=== PATIENT | male | born 1975 | race Two or more races ===

== ENCOUNTER 2025-02-07 08:26 | Emergency (ER) | payer OTHER ==
[~2025-02-07] VITALS: Ht 154.9 cm; Wt 111.1 kg
[2025-02-07 08:29] VITALS: BP 160/64; O2SAT 100
[2025-02-07] MEDS ORDERED: LOSARTAN-HCTZ1 EACH (08:29)
[2025-02-07 09:57] LABS: PH,URINE 7.5 (5.0-8.0); URINE APPEARANCE Clear; URINE BILIRRUBIN Negative (NEGATIVE); URINE BLOOD Negative; URINE COLOR Yellow; URINE GLUCOSE Negative (NEGATIVE); URINE KETONE Negative (NEGATIVE); URINE LEUKOCYTE Negative; URINE NITRATE Negative; URINE PROTEIN Negative (NEGATIVE)
[2025-02-07 10:00] LABS: URINE BACTERIA 6.1 uL (0.0-1933); URINE RBC 2.2 uL (0.0-20.8)
[2025-02-07 10:49] LABS: CREATININE SERUM 0.8 mg/dL (0.70-1.30); GFR 101.91; POTASSIUM 4.33 mEq/L (3.5-5.1)
[2025-02-07 11:13] LABS: URINE CAST 0.14 uL (0.0-1.40); URINE EPITHELIAL CELLS 0.9 uL (0.0-38.8); URINE WBC 0.3 uL (0.0-23.2)
[2025-02-07 11:28] LABS: BASO % 0.6 % (0.1-1.2); EOS # 0.14 (0.04-0.54); EOS % 1.5 % (0.7-7.0); HEMATOCRIT 41.4 % (40.1-51.0); HEMOGLOBIN 14.6 g/dL (13.7-17.5); LYMPH # 1.95 (1.18-3.74); LYMPH % 21.5 % (19.3-53.1); MONO # 0.43 (0.24-0.82); MONO % 4.7 % (4.7-12.5); NEUT # 6.49 (1.56-6.13); NEUT % 71.5 % (34.0-71.1); PLATELET COUNT 271 K/uL (163-369); RED BLOOD COUNT 4.86 M/uL (4.63-6.08); RED CELL DISTRIBUTION WIDTH 13.3 % (11.6-14.4)
== END 2025-02-07 13:59 | disposition home or self-care (01) ==
LOC: ER 08:50
PROVIDERS: General Practice
DX: R00.1 Bradycardia, unspecified (principal); R42 Dizziness and giddiness; I10 Essential (primary) hypertension; Z88.6 Allergy status to analgesic agent